=== PATIENT | male | born 1945 | race Two or more races ===

== ENCOUNTER 2019-11-01 09:55 | Emergency (ER) | payer OTHER, MEDICARE ==
[~2019-11-01] VITALS: Ht 170.2 cm; Wt 70.0 kg
[~2019-11-01 09:55] MED LIST: ASPI-1265 PO; CARV-50 PO; CHOL200052 PO; CLOP75TA35 PO; FLO0.4C PO; HYDR25TA4 PO; SIMV10TA2 PO
--- NOTE | 2019-11-01 10:09 | NUR ---
Lotus WALLIS at bedside.
[2019-11-01 11:17] LABS: CLARITY,URINE CLOUDY (Clear); COLOR,URINE BROWN (Yellow); GLUCOSE, URINE NEGATIVE (Neg); KETONES,URINE NEGATIVE (Neg); LEUKOCYTE ESTERASE ,URINE TRACE (Neg); NITRITES, URINE POSITIVE (Neg); OCCULT BLOOD,URINE LARGE (Neg); PH,URINE 6.5 (4.8-8.0); PROTEIN,URINE 100 mg/dl (Neg)
[2019-11-01 11:20] LABS: UA COLLECTION TYPE OTHER
[2019-11-01 11:23] LABS: BACTERIA,URINE 4+ /HPF (Neg); MUCUS STRANDS NONE SEEN /LPF (Neg); RBC,URINE TNTC /HPF (0-2); SQUAMOUS EPITHELIAL CELL,UR NONE SEEN /LPF (FEW); WBC,URINE 20-30 /HPF (0-4)
[2019-11-01] MEDS ORDERED: SULF1TAB49 PO (12:00)
[2019-11-01 12:07] VITALS: BP 167/79
== END 2019-11-01 12:12 | disposition home or self-care (01) ==
LOC: ER 09:55
DX: N39.0 Urinary tract infection, site not specified (principal); R31.0 Gross hematuria; M25.551 Pain in right hip; I69.954 Hemiplegia and hemiparesis following unspecified cerebrovascular disease affecting left non-dominant side; Z79.01 Long term (current) use of anticoagulants; Z86.73 Personal history of transient ischemic attack (TIA), and cerebral infarction without residual deficits; Z79.82 Long term (current) use of aspirin; Z79.2 Long term (current) use of antibiotics; Z79.899 Other long term (current) drug therapy
CPT/HCPCS: 81001; 87077; 87088; 87186; 99284